=== PATIENT | male | born 1990 | race American Indian/Alaskan Native ===

== ENCOUNTER 2017-03-29 16:07 | Emergency (ER) | payer OTHER ==
[2017-03-29 16:25] VITALS: O2SAT 96
--- NOTE | 2017-03-29 17:38 | C.PDOC ---
History Of Present Illness 26 y/o male complaining of headache for the last two days. He denies blurred vision, photophobia, nausea, vomiting, vertigo, or other complaint. Patient reports a history of migraines in the past and reports that these improved with sleep, however that is not helping now. He denies trying any analgesics for pain. There are no other complaints at this time. Time Seen by Provider: 03/29/17 16:29 Chief Complaint (Nursing): Dental Pain History Per: Patient History/Exam Limitations: no limitations Onset/Duration Of Symptoms: Days (2) Current Symptoms Are (Timing): Still Present Severity: Severe Quality: Positive for: "Pain" Recent travel outside of the [place]: No Additional History Per: Patient Past Medical History Vital Signs: Last Vital Signs Temp 98.9 F 03/29/17 18:55 Pulse 92 H 03/29/17 18:55 Resp 20 03/29/17 18:55 BP 149/87 03/29/17 18:55 Pulse Ox 96 03/29/17 18:55 - Medical History PMH: Migraine Family History: States: Unknown Family Hx - Social History Hx Tobacco Use: No Hx Alcohol Use: No Hx Substance Use: Yes - Immunization History Hx Tetanus Toxoid Vaccination: No Hx Influenza Vaccination: Yes Hx Pneumococcal Vaccination: No Review Of Systems Except As Marked, All Systems Reviewed And Found Negative. Neurological: Positive for: Headache Physical Exam - Physical Exam Appears: Well Skin: Normal Color, Warm, Dry Head: Atraumatic Eye(s): bilateral: Normal Inspection Ear(s): Bilateral: Normal Nose: Normal Oral Mucosa: Moist Throat: Normal Neck: Normal ROM, Supple Chest: No Tenderness Cardiovascular: Rhythm Regular Respiratory: Normal Breath Sounds Extremity: Normal ROM Neurological/Psych: Oriented x3, Normal Speech, Normal Motor, No Dysarthria ED Course And Treatment O2 Sat by Pulse Oximetry: 96 Medical Decision Making Medical Decision Making: Impression: Headache Plan: - Toradol and Reglan - Reevaluation On reassessment, patient is resting comfortably, is tolerating PO, and no longer has headache, neurologic deficit, photophobia, rash, fever, or nuchal rigidity. Patient was instructed to follow up with physician/clinic in 1-2 days or return to ED if symptoms persist or worsen. Disposition - Disposition Disposition: HOME/ ROUTINE Disposition Time: 18:49 Condition: STABLE Additional Instructions: Follow up with your primary medical doctor or clinic in 2-5 days for further evaluation. Take medications as prescribed. Return to the emergency department at any time if symptoms persist or worsen. Prescriptions: Naproxen [Naprosyn] 1 tab PO BID PRN #20 tab PRN Reason: Pain Instructions: Acute Headache (ED) Forms: [email or web address] Connect (French) - Clinical Impression Clinical Impression: Headache - Scribe Statement The provider has reviewed the documentation as recorded by the Scribe (Betty Bernal)
[2017-03-29 18:58] VITALS: BP 149/87; PULSE 92; RESP 20; TEMP 98.9
== END 2017-03-29 18:58 | disposition home or self-care (01) ==
LOC: C.ER 16:07
DX: R51 Headache (principal)
CPT/HCPCS: 96372; 99282; J1885